=== PATIENT | female | born 1995 | race Caucasian/White ===

== ENCOUNTER → 2019-09-01 | Outpatient (CLI) | payer OTHER ==
[~2019-09-01] MED LIST: ACHD5005 PO; CLARITAN; CORTEF; DDAVP; GADOBUTROL 7.5 MMOL/7.5 ML (GADAVIST) VIAL IV ONE; THYROID MED; TOPAMAX; ZOLOFT; [UNRECOGNIZED DRUG - OTHER]
--- NOTE | 2019-09-01 12:59 | Diagnostic Imaging Report ---
CLINICAL INDICATION: Patient is having no problems but has a history of previous brain surgery for pituitary tumor. EXAM: MRI of the brain and pituitary using pituitary protocol performed without and with 7 mL of Gadavist IV gadolinium. Sequences include sagittal T1, axial flair, axial T1, axial DWI, axial ADC map, coronal T1 thin, coronal T1 fat sat thin, sagittal T1 thin, coronal T2 fat-sat thin, axial T1 post contrast whole brain, coronal dynamic post IV gadolinium through the sella, coronal T1 post IV gadolinium thin fat sat, and sagittal T1 post gadolinium thin. COMPARISON: Head CT without contrast dated 04/21/2009. FINDINGS: Again seen postop changes with craniotomy involving the squamosal portion of the right temporal bone. There is a small area of cortical and subcortical increased T2 signal and encephalomalacia involving the lateral anterior aspect of the right frontal lobe which may be from postoperative changes with adjacent level of the craniotomy. There are postop changes to the sella with small amount of enhancing tissue in the sella area. There is no measurable mass seen. These findings are related to postoperative changes. The infundibulum is minimally deviated toward the left likely from scarring and postop changes. The bilateral cavernous carotid arteries are patent. There is no encroachment upon the optic nerves and chiasm noted. There is minimal pachymeningeal enhancement involving the right frontal lobe region which may be from chronic postoperative changes. The brain parenchymal volume appears appropriate for patient's age. There is no hydrocephalus. Basal cisterns are unremarkable. The [place] vascular structures show no gross abnormality as visualized. The extracranial soft tissues, skull, and orbits are unremarkable. Paranasal sinuses and mastoid air cells are clear. IMPRESSION: 1: There are postop changes with right temporal craniotomy and resection changes in the sella area with no evidence of enhancing mass. 2: The remainder of this exam shows no other significant abnormality. Dictated by: Dictated on workstation # [id number]
== END ==
LOC: RAD 09:59
DX: Z86.011 Personal history of benign neoplasm of the brain (principal); Z98.890 Other specified postprocedural states
CPT/HCPCS: 70553